=== PATIENT | female | born 1950 | race Caucasian/White ===

== ENCOUNTER 2024-02-20 09:57 | Inpatient (IN) | payer BC, MEDICAID, MEDICARE ==
[2024-02-19 23:00] VITALS: BP 134/81; RESP 18; TEMP 36.16956; O2SAT 97
[~2024-02-20] VITALS: Ht 165.1 cm; Wt 71.7 kg
[2024-02-20 11:33] LABS: BASOPHILS % 0.6 % (0.0-2.0); EOSINOPHILS % 1.2 % (0.0-5.0); HEMATOCRIT. 40.7 % (36.0-48.0); HEMOGLOBIN. 13.5 g/dL (12.0-16.0); MEAN CORPUSCULAR HEMOGLOBIN 30.1 pg (28.0-32.0); MEAN CORPUSCULAR HGB CONC 33.1 g/dL (31.0-37.0); MEAN PLATELET VOLUME 8.5 fl (7.4-10.4); MONOCYTES % 5.5 % (2.0-8.0); NEUTROPHILS % 74.7 % (40.0-76.0); PLATELET 260 x1000/uL (130-400); RED BLOOD CELL COUNT 4.47 mill/uL (4.2-5.4); RED CELL DISTRIBUTION WIDTH 13.2 % (11.6-14.6); WHITE BLOOD COUNT 7.7 x1000/uL (4.5-11.0)
[2024-02-20 11:37] LABS: CHLORIDE 103 mEq/L (98-107); POTASSIUM 3.4 mEq/L (3.5-5.1); SODIUM 136 mEq/L (136-145)
[2024-02-20 11:38] LABS: CALCIUM 9.2 mg/dL (8.7-10.4); CARBON DIOXIDE 24 mEq/L (21-32)
[2024-02-20 11:43] LABS: CREATININE 0.7 mg/dL (0.6-1.0); GLUCOSE 218 mg/dL (70-105); UREA NITROGEN BLOOD 16 mg/dL (9-23)
[2024-02-20 11:49] LABS: TROPONIN I HIGH SENSITIVITY < 4 ng/L (3.0-34)
[2024-02-20] MEDS: ONDANSETRON HCL 4MG/2ML INJ IV ONE (12:09)
[2024-02-20] MEDS: MECLIZINE 25MG TABLET PO ONE (13:07)
[2024-02-20] MEDS ORDERED: MAGNESIUM/ALUMINUM HYDROXIDE/SIMETHICONE 30ML UDC PO PRN (13:15)
[2024-02-20] MEDS ORDERED: IPRATROPIUM/ALBUTEROL 0.5-3(2.5)MG/3ML NEB HHN PRN (13:15)
[2024-02-20] MEDS ORDERED: CLONIDINE 0.1MG TABLET PO PRN (13:15)
[2024-02-20] MEDS ORDERED: MORPHINE SULFATE 2 MG/ML INJ (NOT FOR IM USE) IV PRN (13:15)
[2024-02-20] MEDS ORDERED: DOCUSATE SODIUM 100MG CAPSULE PO PRN (13:15)
[2024-02-20] MEDS ORDERED: KETOROLAC 15MG/ML VIAL IV PRN (13:15)
[2024-02-20] MEDS ORDERED: GUAIFENESIN 200MG/10ML SUGAR FREE UDC PO PRN (13:15)
[2024-02-20] MEDS ORDERED: DEXTROSE 50% WATER 50ML SYRINGE IV PRN (13:15)
[2024-02-20] MEDS: SODIUM CHLORIDE 0.9% 1,000 ML IV ONE (13:20)
[2024-02-20] MEDS: METOCLOPRAMIDE HCL 10MG/2ML VIAL IV NR (13:29)
[2024-02-20] MEDS: KCL 20MEQ/100ML PREMIX 100 ML IV SCH (15:41)
[2024-02-20] MEDS: ENOXAPARIN 40MG/0.4ML SYR SUBCUT SCH (15:43)
[2024-02-20] MEDS: INSULIN LISPRO 100 UNITS/ML SUBCUT SCH ×2 (15:50→17:50)
[2024-02-20 16:16] LABS: CLARITY URINE CLEAR (CLEAR); COLOR URINE YELLOW (YELLOW); GLUCOSE URINE 3+ (NEGATIVE); KETONES URINE 3+ (NEGATIVE); LEUKOCYTE ESTERASE URINE NEGATIVE (NEGATIVE); NITRITE URINE NEGATIVE (NEGATIVE); OCCULT BLOOD URINE NEGATIVE (NEGATIVE); PH URINE 6.5 (4.5-8.0); PROTEIN URINE NEGATIVE (NEGATIVE); SPECIFIC GRAVITY URINE 1.037 (1.005-1.030); UROBILINOGEN URINE 0.2 E.U./dL (0.2-1.0)
[2024-02-20 16:27] LABS: *AMPHETAMINES SCREEN URINE NEGATIVE (NEGATIVE); *BARBITURATES SCREEN URINE NEGATIVE (NEGATIVE); *BENZODIAZEPINES SCREEN URINE NEGATIVE (NEGATIVE); *COCAINE SCREEN URINE NEGATIVE (NEGATIVE); CANNABINOID URINE SCREEN NEGATIVE (NEGATIVE); ECSTASY MDMA SCREEN URINE NEGATIVE (NEGATIVE); METHADONE URINE SCREEN NEGATIVE (NEGATIVE); OPIATES URINE SCREEN NEGATIVE (NEGATIVE); PHENCYCLIDINE URINE SCREEN NEGATIVE (NEGATIVE)
[2024-02-20 16:57] LABS: BACTERIA URINE NONE SEEN; RBC URINE NONE SEEN /hpf (0-2); WBC URINE NONE SEEN /hpf (0-2)
[2024-02-20] MEDS: SODIUM CHLORIDE 0.9% 1,000 ML IV SCH (17:49)
[2024-02-20] MEDS: BLOOD SUGAR DIAGNOSTIC STRIP TEST SCH (18:10)
[2024-02-20] MEDS: ONDANSETRON HCL 4MG/2ML INJ IV PRN (19:02)
[2024-02-20 20:00] VITALS: BP 119/45; PULSE 89; RESP 18; TEMP 36.114; TEMP 36.14; O2SAT 99
[2024-02-20] MEDS: ATORVASTATIN CALCIUM 40MG TABLET PO SCH (21:49)
[2024-02-20] MEDS ORDERED: NALOXONE HCL 0.4MG/ML VIAL IV PRN (23:45)
[2024-02-21 01:47] VITALS: BP 143/52; PULSE 76; RESP 18; TEMP 36.7516
[2024-02-21 02:03] LABS: CREATINE KINASE 109 IU/L (34-145)
[2024-02-21 02:04] VITALS: BP 143/52; PULSE 76; RESP 18; TEMP 36.7516
[2024-02-21] MEDS: MECLIZINE 25MG TABLET PO SCH (03:52)
[2024-02-21] MEDS ORDERED: METF-416 PO (05:29)
[2024-02-21] MEDS ORDERED: ESOM40CA65 PO (05:29)
[2024-02-21] MEDS ORDERED: EMPA25TA PO (05:29)
[2024-02-21] MEDS ORDERED: SEMA0.258 INJ (05:29)
[2024-02-21] MEDS ORDERED: ROSU5CAP (05:29)
[2024-02-21] MEDS ORDERED: AMLO5TAB88 PO (05:29)
[2024-02-21 08:00] VITALS: BP 129/50; PULSE 75; RESP 18; TEMP 36.44736; O2SAT 98
[2024-02-21] MEDS: METOCLOPRAMIDE HCL 5MG TABLET PO SCH (08:32)
[2024-02-21] MEDS: AMLODIPINE 10MG TABLET PO SCH (08:32)
[2024-02-21] MEDS: PANTOPRAZOLE SODIUM 40 MG/VIAL IV SCH (08:40)
[2024-02-21] MEDS: INSULIN GLARGINE 100 UNITS/ML SUBCUT SCH (10:00)
[2024-02-21 11:19] LABS: CARBON DIOXIDE 22 mEq/L (21-32); CHLORIDE 109 mEq/L (98-107); POTASSIUM 3.7 mEq/L (3.5-5.1); SODIUM 139 mEq/L (136-145)
[2024-02-21 11:20] LABS: CALCIUM 8.4 mg/dL (8.7-10.4)
[2024-02-21 11:21] LABS: BASOPHILS % 0.8 % (0.0-2.0); EOSINOPHILS % 1.1 % (0.0-5.0); HEMATOCRIT. 35.9 % (36.0-48.0); LYMPHOCYTES % 27.5 % (20.0-50.0); MEAN CORPUSCULAR HEMOGLOBIN 30.8 pg (28.0-32.0); MEAN CORPUSCULAR HGB CONC 33.3 g/dL (31.0-37.0); MEAN CORPUSCULAR VOLUME 92.5 fL (81.0-99.0); MEAN PLATELET VOLUME 8.9 fl (7.4-10.4); MONOCYTES % 8.2 % (2.0-8.0); NEUTROPHILS % 62.4 % (40.0-76.0); PLATELET 243 x1000/uL (130-400); RED BLOOD CELL COUNT 3.88 mill/uL (4.2-5.4); RED CELL DISTRIBUTION WIDTH 13.5 % (11.6-14.6); WHITE BLOOD COUNT 7.2 x1000/uL (4.5-11.0)
[2024-02-21 11:24] LABS: CREATININE 0.6 mg/dL (0.6-1.0); GLUCOSE 75 mg/dL (70-105)
[2024-02-21 11:25] LABS: LDL CHOLESTEROL 58 mg/dL (5-100); TRIGLYCERIDE 163 mg/dL (0-150); UREA NITROGEN BLOOD 11 mg/dL (9-23)
[2024-02-21 11:26] LABS: CHOLESTEROL 119 mg/dL (<200); HDL CHOLESTEROL 34 mg/dL (>65)
[2024-02-21 11:29] LABS: T4 FREE 0.99 ng/dL (0.89-1.76)
[2024-02-21 12:00] VITALS: BP 137/48; PULSE 67; RESP 18; TEMP 36.3918; O2SAT 97
[2024-02-21] MEDS: METOCLOPRAMIDE HCL 10MG/2ML VIAL IV NR (12:57)
[2024-02-21 16:00] VITALS: BP 124/46; PULSE 67; RESP 18; TEMP 36.22512; O2SAT 98
== END 2024-02-21 17:50 | disposition left against medical advice (07) | DRG 74 ==
LOC: ER 09:57 → 5WST 12:41 → EDBEDREQ 12:44 → 7EST 23:33
PROVIDERS: ADMIT Internal Medicine; ATTEND Internal Medicine
DX: E11.43 Type 2 diabetes mellitus with diabetic autonomic (poly)neuropathy (principal); I10 Essential (primary) hypertension; H81.13 Benign paroxysmal vertigo, bilateral; K31.84 Gastroparesis; E78.5 Hyperlipidemia, unspecified; Z53.29 Procedure and treatment not carried out because of patient's decision for other reasons; Z79.4 Long term (current) use of insulin; Z79.899 Other long term (current) drug therapy
CPT/HCPCS: 36415; 71045; 74176; 80048; 80061; 80305; 81003; 82550; 82962; 83036; 83880; 84439; 84443; 84484; 85025; 93005; 99285; J1650; J1815; J2405; J2470; J2765; J3480; J7030; J8597